=== PATIENT | male | born 1950 | race Caucasian/White ===

== ENCOUNTER 2020-10-13 09:42 | Outpatient (RCR) | payer OTHER, SELFPAY | END 2020-10-16 08:00 | disposition home or self-care (01) | LOC: HO.PT 09:42 | PROVIDERS: PCP Nurse Practitioner Family; Visit Provider Physician Assistant | DX: M51.36 Other intervertebral disc degeneration, lumbar region (principal) | CPT/HCPCS: 97110; 97112; 97162 ==

== ENCOUNTER 2021-05-04 08:00 | Outpatient (REF) | payer MEDICARE, MEDICAID, SELFPAY ==
--- NOTE | ~2021-05-04 | XR_ITS ---
EXAMINATION: XR BOTH KNEES AP STANDING XR LEFT KNEE, 2 VIEWS CLINICAL INFORMATION: Pain. COMPARISON: Bilateral knee radiographs dated 05/03/2017 TECHNIQUE: Standing AP view of both knees and lateral and sunrise views of the left knee. FINDINGS: Right knee: [id number]-[id number] medial compartment joint space narrowing. Medial and lateral compartment marginal osteophytes. Findings are unchanged. No osseous erosion. No abnormal soft tissue calcification. No fracture or dislocation. Left knee: Mild medial compartment joint space narrowing. Prominent lateral patellofemoral compartment joint space narrowing with subchondral sclerosis and mild bony remodeling. Tricompartmental marginal osteophytes. Small joint effusion. XR/XR knee LT 2V IMPRESSION: Right knee: Qhuz-tv-wpeoemns medial as well as mild patellofemoral compartment osteoarthritis, unchanged. Left knee: Aobmvfcb-bj-nbzwbi patellofemoral as well as mild medial and lateral compartment osteoarthritis, unchanged.
--- NOTE | ~2021-05-04 | XR_ITS ---
EXAMINATION: XR BOTH KNEES AP STANDING XR LEFT KNEE, 2 VIEWS CLINICAL INFORMATION: Pain. COMPARISON: Bilateral knee radiographs dated 05/03/2017 TECHNIQUE: Standing AP view of both knees and lateral and sunrise views of the left knee. FINDINGS: Right knee: Shoz-ak-ppljqxgd medial compartment joint space narrowing. Medial and lateral compartment marginal osteophytes. Findings are unchanged. No osseous erosion. No abnormal soft tissue calcification. No fracture or dislocation. Left knee: Mild medial compartment joint space narrowing. Prominent lateral patellofemoral compartment joint space narrowing with subchondral sclerosis and mild bony remodeling. Tricompartmental marginal osteophytes. Small joint effusion. XR/XR knee standing BI IMPRESSION: Right knee: Dmvg-sr-kzbljfmw medial as well as mild patellofemoral compartment osteoarthritis, unchanged. Left knee: Lryafvni-ag-zdrfob patellofemoral as well as mild medial and lateral compartment osteoarthritis, unchanged.
== END 2021-05-04 08:01 | disposition home or self-care (01) ==
LOC: HO.HOSX 08:00
PROVIDERS: Visit Provider Orthopaedic Surgery
DX: M17.12 Unilateral primary osteoarthritis, left knee (principal)
CPT/HCPCS: 20610; 73560; 73565; 99212; J1100

== ENCOUNTER → 2021-08-10 10:22 | Outpatient (BNVA) | payer MEDICARE, SELFPAY | PROVIDERS: Visit Provider Orthopaedic Surgery | DX: M17.12 Unilateral primary osteoarthritis, left knee (principal) | CPT/HCPCS: 99212 ==

== ENCOUNTER → 2021-10-01 08:55 | Outpatient (BNVA) | payer MEDICARE, OTHER, SELFPAY | PROVIDERS: PCP Nurse Practitioner Family; Visit Provider Orthopaedic Surgery | DX: M17.12 Unilateral primary osteoarthritis, left knee (principal) | CPT/HCPCS: 20610; 99212; J7318 ==

== ENCOUNTER 2023-10-18 14:20 | Outpatient (AMB) | payer MEDICARE, SELFPAY ==
--- NOTE | 2023-10-18 15:01 | A.SPINEOV_ITS ---
Intake Intake Visit Reasons: Left hip pain Intake Note: Mr. 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 He tells me it started 8-9 months ago. We did a previous L5-S1 fusion on him a few years back. He did well from that with improvement in his radicular pain but it still had morning back pain which has carried on but is manageable. The symptoms he currently is having feels like a very focal pain up by his groin and testicle on the left side. It does not radiate down from his back. He has no tingling numbness or weakness going down the leg. It only occurs when he is standing and walking, gets better when he sits but does not completely go away until he sits for awhile and then it will past. It seems to be only getting worse. He comes today with a new MRI of his low back. The pain does not occur in the morning. On my exam, he is not demonstrating any focal masses in the groin to palpation, I was able to reproduce the pain with deep palpation into the groin area. He does not have a hernia. With motor testing, adduction of his hip and flexion of his hip can reproduce the pain. TAYLOR testing is negative. Internal external rotation does not reproduce the pain. The rest of his motor exam is otherwise normal. 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 There is a foraminal component at the L3-4 level where there is narrowing which I would rate his severe. I do not think his symptoms are connected to his lower back as they do not present with real radicular symptoms and I can reproduce the pain with palpation of the groin and adduction and flexion of the hip. I think he may have strained his groin and has a small tear or something in a tendon. I am not an expert on this. I told him [facility] He will get an evaluation by them and see if they can diagnose or treat this. If he develops any radicular symptoms or true nerve problems I would be happy to see him back. Total amount of time spent in this visit was 20 minutes in discussion of symptoms, lumbar imaging results and subsequent plan of care Sushil Tello MD,PhD [facility] Coding Level of Care Code Est Pt Level 3 (63979) Diagnoses Groin pain R10.30
== END 2023-10-18 15:36 | disposition home or self-care (01) ==
PROVIDERS: PCP Nurse Practitioner Family; Visit Provider Physician Assistant
DX: R10.30 Lower abdominal pain, unspecified (principal)
CPT/HCPCS: 99213

== ENCOUNTER → 2023-10-18 14:20 | Outpatient (BNVA) | payer MEDICARE, OTHER, SELFPAY | PROVIDERS: PCP Nurse Practitioner Family; Visit Provider Physician Assistant | DX: R10.32 Left lower quadrant pain (principal) | CPT/HCPCS: 99212 ==